=== PATIENT | male | born 1995 | race African-American/Black ===

== ENCOUNTER 2017-01-22 08:38 | Emergency (ER) | payer SELFPAY ==
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
[2017-01-22 11:13] VITALS: BP 122/84
== END 2017-01-22 11:12 | disposition home or self-care (01) ==
LOC: ER 08:38
DX: Z48.02 Encounter for removal of sutures (principal); M79.605 Pain in left leg; G89.29 Other chronic pain; Z98.890 Other specified postprocedural states; I10 Essential (primary) hypertension

== ENCOUNTER 2017-02-02 20:05 | Emergency (ER) | payer SELFPAY ==
[2017-02-02 22:20] LABS: ABSOLUTE BASOPHILS # (AUTO) 0.1 10^3/uL (0.0-0.2); ABSOLUTE EOSINOPHILS # (AUTO) 0.2 10^3/uL (0.0-0.6); ABSOLUTE LYMPHOCYTES (AUTO) 3.9 10^3/uL (0.5-4.7); ABSOLUTE MONOCYTES (AUTO) 0.8 10^3/uL (0.1-1.4); ABSOLUTE NEUT (AUTO) 6.7 10^3/uL (1.7-8.2); BASOPHILS % (AUTO) 0.6 % (0-2); EOSINOPHILS % (AUTO) 1.9 % (0-6); HEMATOCRIT 43.6 % (37.9-51.0); HEMOGLOBIN 14.1 g/dL (13.5-17.0); HGB HCT DIFFERENCE -1.3; LYMPHOCYTES % (AUTO) 33.3 % (13-45); MEAN CORPUSCULAR HEMOGLOBIN 27.9 pg (27.0-33.4); MEAN CORPUSCULAR HGB CONC 32.5 g/dL (32.0-36.0); MEAN CORPUSCULAR VOLUME 86 fl (80-97); MONOCYTES % (AUTO) 6.6 % (3-13); RED BLOOD COUNT 5.06 10^6/uL (4.35-5.55); RED CELL DISTRIBUTION WIDTH 13.8 % (11.5-14.0); SEGMENTED NEUTROPHILS % (AUTO) 57.6 % (42-78); WHITE BLOOD COUNT 11.6 10^3/uL (4.0-10.5)
[2017-02-02 22:25] LABS: ALANINE AMINOTRANSFERASE 37 U/L (21-72); ALBUMIN 4.8 g/dL (3.5-5.0); ALKALINE PHOSPHATASE 114 U/L (38-126); ANION GAP 12 (5-19); ASPARTATE AMINO TRANSFERASE 40 U/L (17-59); BILIRUBIN,DIRECT 0.2 mg/dL (0.0-0.4); BILIRUBIN,TOTAL 0.7 mg/dL (0.2-1.3); BLOOD UREA NITROGEN 11 mg/dL (7-20); CALCIUM 9.9 mg/dL (8.4-10.2); CARBON DIOXIDE 28 mmol/L (22-30); CHLORIDE 106 mmol/L (98-107); CREATINE KINASE 317 U/L (55-170); GLUCOSE 79 mg/dL (75-110); LIPASE 106.4 U/L (23-300); POTASSIUM 4.1 mmol/L (3.6-5.0); SODIUM 146.1 mmol/L (137-145)
[2017-02-02 22:37] LABS: URINE BARBITURATES SCREEN NEGATIVE; URINE METHADONE SCREEN NEGATIVE; URINE OPIATES LOW UNCONFIRMED POSITIVE; URINE PHENCYCLIDINE SCREEN UNCONFIRMED POSITIVE
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
--- NOTE | 2017-02-03 07:50 | EKG REPORT ---
SEVERITY:- BORDERLINE ECG - SINUS RHYTHM BORDERLINE T WAVE ABNORMALITIES INFERIOR LEADS : Confirmed by: Yevgeniy Lopes MD 03-Feb-2017 07:49:21
[2017-02-03 08:32] VITALS: BP 145/96
== END 2017-02-03 01:00 | disposition home or self-care (01) ==
LOC: ER 20:05
DX: R07.89 Other chest pain (principal); R19.7 Diarrhea, unspecified; R61 Generalized hyperhidrosis; M79.673 Pain in unspecified foot; G89.29 Other chronic pain; T33.8 Superficial frostbite of ankle, foot, and toe(s); X31.XXXS Exposure to excessive natural cold, sequela; I10 Essential (primary) hypertension; Z87.891 Personal history of nicotine dependence
CPT/HCPCS: 36415; 71020; 80053; 80307; 82550; 82553; 82962; 83690; 84484; 85025; 93005; 93010; 99285

== ENCOUNTER 2017-03-09 12:17 | Emergency (ER) | payer SELFPAY ==
[2017-03-09 12:21] VITALS: BP 133/68
[2017-03-09] MEDS ORDERED: IBUPROFEN 800 MG TABLET PO ONE (13:48)
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
== END 2017-03-09 14:55 | disposition home or self-care (01) ==
LOC: ER 12:17
DX: M79.662 Pain in left lower leg (principal); W20.8XXA Other cause of strike by thrown, projected or falling object, initial encounter; Y92.481 Parking lot as the place of occurrence of the external cause; I10 Essential (primary) hypertension; Z87.828 Personal history of other (healed) physical injury and trauma; Z98.890 Other specified postprocedural states
CPT/HCPCS: 99283

== ENCOUNTER 2017-06-03 16:37 | Emergency (ER) | payer MEDICAID ==
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
[2017-06-03] MEDS ORDERED: NAPROXEN 250 MG TABLET PO ONE (17:56)
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
[2017-06-03 18:47] VITALS: BP 148/87
== END 2017-06-03 18:47 | disposition home or self-care (01) ==
LOC: ER 16:37
DX: S93.412A Sprain of calcaneofibular ligament of left ankle, initial encounter (principal); M25.572 Pain in left ankle and joints of left foot; M79.89 Other specified soft tissue disorders; Z87.891 Personal history of nicotine dependence; X58.XXXA Exposure to other specified factors, initial encounter
CPT/HCPCS: 99283; 73610; L1902; J3490

== ENCOUNTER 2018-03-16 13:27 | Emergency (ER) | payer SELFPAY ==
[2018-03-16 13:44] VITALS: BP 148/82
[2018-03-16] MEDS ORDERED: LIDOCAINE 2% VISCOUS SOLN 20 ML UDCUP PO ONE (14:02)
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
== END 2018-03-16 14:16 | disposition home or self-care (01) ==
LOC: ER 13:27
DX: K08.9 Disorder of teeth and supporting structures, unspecified (principal); I10 Essential (primary) hypertension
CPT/HCPCS: 99282; J3490

== ENCOUNTER 2018-04-13 13:52 | Emergency (ER) | payer SELFPAY ==
[2018-04-13 14:07] VITALS: BP 161/85
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
--- NOTE | 2018-04-13 15:21 | RADIOLOGY REPORT (SQ) ---
EXAM DESCRIPTION: FINGER LEFT COMPLETED DATE/TIME: 04/13/2018 3:08 pm REASON FOR STUDY: left 2nd finger injury COMPARISON: None. NUMBER OF VIEWS: Three views. TECHNIQUE: AP, lateral, and oblique images acquired of the left second finger. LIMITATIONS: None. FINDINGS: MINERALIZATION: Normal. BONES: No acute fracture or dislocation. No worrisome bone lesions. SOFT TISSUES: Soft tissue swelling proximal 2nd digit OTHER: No other significant finding. IMPRESSION: No acute posttraumatic bony change. Soft tissue swelling proximal left 2nd digit. COMMENT: SITE OF TRAUMA/COMPLAINT MARKED/STAMP COMPLETED: NOT APPLICABLE. TECHNICAL DOCUMENTATION: JOB ID: [id number] [employer]- All Rights Reserved Reading location - IP/workstation name: [email or web address]
== END 2018-04-13 15:31 | disposition home or self-care (01) ==
LOC: ER 13:52
DX: S60.022A Contusion of left index finger without damage to nail, initial encounter (principal); W21.05XA Struck by basketball, initial encounter; Y93.67 Activity, basketball; I10 Essential (primary) hypertension
CPT/HCPCS: 99283